=== PATIENT | male | born 1970 | race Caucasian/White ===

== ENCOUNTER 2018-08-15 22:38 | Emergency (ER) | payer MEDICAID ==
[~2018-08-15] VITALS: Ht 170.2 cm; Wt 70.3 kg
[~2018-08-15 22:38] MED LIST: thorazine
[2018-08-15 22:40] VITALS: BP 136/86
--- NOTE | 2018-08-15 23:04 | Emergency Room Report ---
History of Present Illness General Chief Complaint: Behavioral Complaint Source: Patient, EMS (LESLEY GONZALEZ M.D.) Present Illness HPI Is a 47-year-old male with a psychiatric history. He was brought in by police and EMS has a 5150 for danger to self. He was at the [employer] and supposedly threatened to stab someone with a dirty needle. When EMS got there he said he needed his Thorazine and amantadine. He said he is hearing voices. He wants to hurt himself but over time. He had a history of heroin abuse but he said is no longer taking it. I asked him what was see using the needle 4, he said that someone gave him caffeine to inject. He denies any nausea vomiting. Denies any homicidal thoughts. Has vague suicidal thoughts. Complaining of generalized pain also. Denies any other complaint. (LESLEY GONZALEZ M.D.) Allergies: Coded Allergies: No Known Allergies (Unverified , 08/15/18) Patient History Past Medical History: see triage record, old chart reviewed, schizophrenia Past Surgical History: other Family History: none Social History: tobacco use, drug use Immunizations: other Reviewed Nursing Documentation: PMH: Agreed; PSxH: Agreed (LESLEY GONZALEZ M.D.) Nursing Documentation-PMH Past Medical History: No History, Except For History Of Psychiatric Problem: Yes (LESLEY GONZALEZ M.D.) Review of Systems ENT: Denies: sore throat Cardiovascular: Denies: chest pain, palpitations Gastrointestinal/Abdominal: Denies: nausea, vomiting, diarrhea Musculoskeletal: Denies: back problems Skin: Denies: rash Neurological: Denies: RODRIGUEZ, seizures All Other Systems: negative except mentioned in HPI (LESLEY GONZALEZ M.D.) Physical Exam Vital Signs Date Time Temp Pulse Resp B/P (MAP) Pulse Ox O2 Delivery O2 Flow Rate FiO2 08/15/18 22:32 98.2 94 18 136/86 99 Room Air 98.2 vitals normal Sp02 EP Interpretation: reviewed, normal General Appearance: alert/responsive, no apparent distress, non-toxic Head: normocephalic, atraumatic Eyes: PERRL, EOMI ENT: oropharynx normal Neck: supple/symm/no masses Respiratory: effort normal, no rhonchi, no wheezing Cardiovascular: no murmur, gallop, rub Gastrointestinal: non-tender, no mass, non-distended, no rebound/guarding, normal bowel sounds Musculoskeletal: other - Tracks champagne on both arms. Uses a wheelchair Neurologic: oriented x3, sensory intact, motor strength/tone normal Skin: no rash, normal palpation (LESLEY GONZALEZ M.D.) Medical Decision Making Diagnostic Impression: Primary Impression: Suicidal ideations Additional Impressions: Methamphetamine abuse Hypokalemia UTI (urinary tract infection) Qualified Codes: N30.00 - Acute cystitis without hematuria ER Course Patient presents with suicidal thoughts and aggressive behavior. He said that he is suicidal but no particular plan. He just wanted to be left alone to sleep. His hypokalemia probably secondary to agitation hyperventilation. We' ll recheck. Patient is medically clear for psychiatric evaluation. Patient is medically clear from my standpoint. He has no clear suicidal mediation. We'll get psychiatric evaluation by Dr. Lloyd to clear the 5150. Lab Results Impression labs with low potassium (LESLEY GONZALEZ M.D.) ER Course Patient ambulatory. Potassium corrected. Cleared by Dr. Lloyd. Stable for outpatient observation and treatment. (Gerry Li M.D.) Last Vital Signs Date Time Temp Pulse Resp B/P (MAP) Pulse Ox O2 Delivery O2 Flow Rate FiO2 08/15/18 22:32 98.2 94 18 136/86 99 Room Air 98.2 Status: improved (LESLEY GONZALEZ M.D.) Status: improved (Gerry Li M.D.) Disposition: HOME, SELF-CARE Condition: Improved Scripts Nitrofurantoin Monohyd/M-Cryst* (MACROBID 100 MG*) 100 Mg Capsule 100 MG ORAL EVERY 12 HOURS, #14 CAP Prov: Gerry Li M.D. 08/16/18 LESLEY GONZALEZ M.D. Aug 15, 2018 23:04 Gerry Li M.D. Aug 16, 2018 16:11
[2018-08-16 00:37] LABS: HEMATOCRIT 42.2 % (42.0-52.0); HEMOGLOBIN 14.6 G/DL (14.2-18.0); MEAN CORPUSCULAR VOLUME 87 FL (80-99); PLATELET COUNT 247 K/UL (150-450); RED BLOOD COUNT 4.86 M/UL (4.70-6.10); RED CELL DISTRIBUTION WIDTH 11.6 % (11.6-14.8); WHITE BLOOD COUNT 6.7 K/UL (4.8-10.8)
[2018-08-16 00:37] LABS: APPEARANCE,URINE SLIGHTLY CLOUDY; BILIRUBIN, URINE 1+ (NEGATIVE); COLOR,URINE BROWN; GLUCOSE, URINE (UA) NEGATIVE (NEGATIVE); KETONES,URINE 1+ (NEGATIVE); LEUKOCYTE ESTERASE ,URINE 1+ (NEGATIVE); NITRITE,URINE POSITIVE (NEGATIVE); PH,URINE 6.5 (4.5-8.0); PROTEIN,URINE 2+ (NEGATIVE); UROBILINOGEN,URINE 4 MG/DL (0.0-1.0)
[2018-08-16 00:54] LABS: ALANINE AMINOTRANSFERASE 32 U/L (12-78); ALBUMIN 3.1 G/DL (3.4-5.0); ALBUMIN/GLOBULIN RATIO 0.7 (1.0-2.7); ALKALINE PHOSPHATASE 99 U/L (46-116); ANION GAP 12 mmol/L (5-15); ASPARTATE AMINO TRANSFERASE 47 U/L (15-37); BILIRUBIN,TOTAL 0.7 MG/DL (0.2-1.0); BLOOD UREA NITROGEN 11 mg/dL (7-18); CARBON DIOXIDE 23 MMOL/L (21-32); CHLORIDE 95 MMOL/L (98-107); CREATININE 0.9 MG/DL (0.55-1.30); SODIUM 131 MMOL/L (136-145)
[2018-08-16 00:56] LABS: POTASSIUM 2.3 MMOL/L (3.5-5.1)
[2018-08-16] MEDS ORDERED: Cephalexin 500mg cap ORAL ONE (01:00)
[2018-08-16] MEDS ORDERED: Haloperidol 5mg/ml Inj IM ONE (08:00)
[2018-08-16] MEDS ORDERED: NITROFURANTOIN100 M2 ORAL (16:13)
[2018-08-16 19:21] VITALS: BP 136/86
== END 2018-08-16 19:25 | disposition home or self-care (01) ==
LOC: EDBD 22:38 → EMR 23:02
DX: R45.851 Suicidal ideations (principal); F15.10 Other stimulant abuse, uncomplicated; E87.6 Hypokalemia; N39.0 Urinary tract infection, site not specified
CPT/HCPCS: 36415; 80053; 80307; 80329; 81003; 84132; 85007; 85025; 96372; 99284; J1630; J3230; J8499